=== PATIENT | male | born 1975 | race Two or more races ===

== ENCOUNTER 2021-01-10 07:40 | Day surgery (SDC) | payer OTHER ==
[2021-01-10] MEDS ORDERED: AMLODIPINE-OLM1 EAC2 (14:35)
[2021-01-10] MEDS ORDERED: NORVASC5 MG (14:36)
== END 2021-01-10 14:00 | disposition home or self-care (01) ==
LOC: AMB-ENDOS 07:40
PROVIDERS: ATTEND Surgery
DX: D13.1 Benign neoplasm of stomach (principal); D13.2 Benign neoplasm of duodenum; K44.9 Diaphragmatic hernia without obstruction or gangrene; Z20.822 Contact with and (suspected) exposure to COVID-19

== ENCOUNTER → 2021-01-10 | Emergency (ER) | payer OTHER ==
[~2021-01-10] VITALS: Ht 175.3 cm; Wt 88.5 kg
[~2021-01-10] MED LIST: AMLODIPINE-OLM1 EAC2; NORVASC5 MG
== END | disposition home or self-care (01) ==
LOC: ER 14:17
DX: I95.9 Hypotension, unspecified (principal)